=== PATIENT | female | born 1945 | race Asian ===

== ENCOUNTER 2022-12-30 10:24 | Emergency (ER) | payer MEDICARE, OTHER, SELFPAY ==
--- NOTE | ~2022-12-30 | XR_ITS ---
EXAMINATION: XR knee LT min 4V DATE: 12/30/2022 11:36 INDICATION: Anterior and medial left knee pain post fall TECHNIQUE: Anteroposterior, 2 oblique, sunrise and crosstable lateral views of the left knee were obt ained COMPARISON: None. FINDINGS: Alignment is normal. No fracture small left knee joint effusion without layering lipohemarthrosis. M ild soft tissue swelling at the anteromedial left knee. IMPRESSION: 1. Anteromedial soft tissue swelling and small knee joint effusion. No acute osseous abnormality. Reviewed, dictated and finalized at location B. IMPRESSION: 1. Anteromedial soft tissue swelling and small knee joint effusion. No acute os seous abnormality.
[2022-12-30 10:51] VITALS: BP 130/65; PULSE 72; RESP 16; TEMP 36.3; O2SAT 97
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
== END 2022-12-30 11:56 | disposition home or self-care (01) ==
PROVIDERS: Emergency Provider Nurse Practitioner Family; PCP Family Medicine
DX: S83.92XA Sprain of unspecified site of left knee, initial encounter (principal); W19.XXXA Unspecified fall, initial encounter
CPT/HCPCS: 73564; 99213; G0463

== ENCOUNTER 2023-01-01 14:20 | Emergency (ER) | payer MEDICARE, OTHER, SELFPAY ==
--- NOTE | ~2023-01-01 | XR_ITS ---
EXAMINATION: XR wrist RT min 3V, XR hand RT min 3V DATE: 01/01/2023 14:54 INDICATION: Pain at the radial side of the right wrist and at the first metacarpal of the right hand post fall one week prior TECHNIQUE: 1. Posteroanterior, ulnar deviation, oblique, and lateral views of the right wrist were obtained. 2. Dorsal palmar, oblique and lateral views of the right hand were obtained. COMPARISON: None. FINDINGS: 2 mm ulnar positive variance. Prominent cystic change with sclerotic margins at the palmar/ulnar side of the lunate with location and the presence of ulnar positive variance suggesting the likelihood of ulnocarpal impaction. Minimal radial subluxation and angulation at the first interphalangeal joint. No fracture. Small amount of chondrocalcinosis at the ulnar side of the wrist joint. There is polyart icular osteoarthritis at the right hand and wrist, moderate to severe at the first interphalangeal concepcion int, moderate at the second distal interphalangeal joint and mild at the triscaphe and a few addition al interphalangeal joints. Soft tissues are unremarkable. IMPRESSION: 1. No acute osseous abnormality. 2. Constellation of findings including prominent cystic change at the ulnar side of the lunate and 2 mm ulnar positive variance which suggests possibility of chronic ulnocarpal impaction. 3. 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 Reviewed, dictated and finalized at location B. IMPRESSION: 1. No acute osseous abnormality. 2. Constellation of findings including prominent cystic change at the ulnar benny e of the lunate and 2 mm ulnar positive variance which suggests possibility of chronic ulnocarpal impaction. 3. Polyarticular osteoarthritis, moderate to severe at the first interphalangea l and moderate at the second distal interphalangeal joint and otherwise mild.
[2023-01-01 14:31] VITALS: BP 135/75; PULSE 94; RESP 18; TEMP 36.6; O2SAT 100
--- NOTE | 2023-01-01 15:19 | ED.UPPEXIN ---
HPI - Extremity Injury (Upper) General Chief Complaint: Extremity Injury, Upper Stated Complaint: Lt Hand Injury Due to Fall Time Seen by Provider: 01/01/23 14:34 Source: patient and RN notes reviewed Mode of arrival: ambulatory Limitations: no limitations History of Present Illness HPI narrative: Patient presents today complaining of pain to her right wrist and hand after falling 2 days ago. She was seen at urgent care for left knee pain after this fall, but states she was not having pain in her wrist at that time. It did develop later that day or yesterday and she wanted to come in for evaluation. She has not tried any [id number] medication for pain prior to arrival, but did apply some ice at home. Denies numbness or tingling in the hand or fingers. Related Data Home Medications Medication Instructions Recorded Confirmed No Home Medications 12/30/22 01/01/23 Allergies Allergy/AdvReac Type Severity Reaction Status Date / Time sulfamethizole AdvReac Mild Rash Verified 01/01/23 14:23 Review of Systems Review of Systems: CONSTITUTIONAL: Denies body aches, fever, chills, or sweats. EYES: Denies visual changes, redness, or discharge. ENT: Denies rhinorrhea, congestion, sore throat, or otalgia. CARDIOVASCULAR: Denies chest pain, palpitations, or edema. RESPIRATORY: Denies cough or dyspnea. GASTROINTESTINAL: Denies abdominal pain, nausea, vomiting, or diarrhea. GENITOURINARY: Denies dysuria or hematuria. SKIN: Denies rash, itching, or wounds. MUSCULOSKELETAL: Denies back pain, or myalgia.+ right hand and wrist pain NEUROLOGIC: Denies headache, numbness, tingling, or weakness. PSYCH: Denies depression or anxiety. [facility] Family History Family History Other Family history of malignant neoplasm of breast in first degree relative Social History Social History Smoking status: Never smoker Alcohol intake: never Comments At time of signature, I have reviewed and agree with nursing past medical, surgical, social and family history unless otherwise noted. Please see nursing chart for further information. There is no relevant family history pertinent to the presenting complaint Exam Narrative: GENERAL: Well-appearing, well-nourished, and in no acute distress. HEAD: Normocephalic, atraumatic. EYES: EOMI. No redness or drainage. Conjunctivae normal. ENT: Mucous membranes pink and moist. NECK: Normal AROM. CHEST: No respiratory distress. EXTREMITIES: Right hand and wrist: Tenderness to the distal wrist, which extends to the thenar eminence. Mild bruising to the dorsum of the wrist and 1st metacarpal. Distal sensation intact. Capillary refill normal. Radial pulse normal. Full range of motion with increased pain. SKIN: Warm, dry, no rash. Capillary refill normal. Normal skin turgor. NEURO: No focal deficits. Alert and oriented x3. Gait steady. PSYCH: Normal affect. No signs of depression or anxiety. Course Course Level of Care: Express Care Visit Vital Signs Vital signs: Vital Signs Temperature 97.8 F 01/01/23 14:31 Pulse Rate 94 01/01/23 14:31 Respiratory Rate 18 01/01/23 14:31 Blood Pressure 135/75 01/01/23 14:31 Pulse Oximetry 100 01/01/23 14:31 Oxygen Delivery Room Air 01/01/23 14:31 Temperature 97.8 F 01/01/23 14:31 Pulse Rate 94 01/01/23 14:31 Respiratory Rate 18 01/01/23 14:31 Blood Pressure 135/75 01/01/23 14:31 Pulse Oximetry 100 01/01/23 14:31 Oxygen Delivery Room Air 01/01/23 14:31 Reviewed. Pt has been instructed to follow up with her PCP regarding her elevated blood pressure today. MDM - Extremity Injury (Upper) MDM Narrative Medical decision making narrative: X-rays are negative for fracture. Instructed patient to use ice and take Tylenol for pain. No prescription medications indicated at this ti
== END 2023-01-01 15:24 | disposition home or self-care (01) ==
PROVIDERS: Emergency Provider Nurse Practitioner; PCP Family Medicine
DX: S63.91XA Sprain of unspecified part of right wrist and hand, initial encounter (principal); W19.XXXA Unspecified fall, initial encounter
CPT/HCPCS: 73110; 73130; 99213; G0463

== ENCOUNTER 2023-04-09 17:40 | Emergency (ER) | payer OTHER, MEDICARE, SELFPAY ==
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
[2023-04-09 17:56] VITALS: BP 135/78; PULSE 84; RESP 16; TEMP 36.7; O2SAT 98
== END 2023-04-09 18:31 | disposition home or self-care (01) ==
PROVIDERS: Emergency Provider Nurse Practitioner; PCP Family Medicine
DX: S39.012A Strain of muscle, fascia and tendon of lower back, initial encounter (principal); V49.40XA Driver injured in collision with unspecified motor vehicles in traffic accident, initial encounter
CPT/HCPCS: 72100; 99213; G0463